=== PATIENT | female | born 1985 | race Caucasian/White ===

== ENCOUNTER 2016-06-15 20:51 | Emergency (ER) | payer MEDICAID, OTHER ==
[~2016-06-15] VITALS: Ht 167.6 cm; Wt 71.6 kg
[~2016-06-15 20:51] MED LIST: BUPR100T4 PO
[2016-06-15 21:21] VITALS: BP 114/83; PULSE 86; RESP 16; TEMP 99.3; O2SAT 97
[2016-06-15 22:43] VITALS: BP 117/61; PULSE 73; RESP 18; TEMP 99.3; O2SAT 100
[2016-06-15] MEDS ORDERED: ONDANSETRON HCL 4 MG/2 ML VIAL IV PUSH ONE (22:45)
[2016-06-15] MEDS ORDERED: SODIUM CHLOR 0.9% 1000 ML INJ 1,000 ML IV ONE ×2 (22:45)
--- NOTE | 2016-06-15 22:48 | PD ---
HPI Chief Complaint: GI Complaint Time Seen by Provider: 22:36 Travel History International Travel<30 days: No Contact w/Intl Traveler<30days: No Traveled to known affect area: No History of Present Illness HPI This 31-year-old female is complaining of vomiting. She says she's had persistent vomiting last 12 hours. She has some upper abdominal discomfort. He had sporadic vomiting at times. She had endoscopy with Dr. Slade in September. 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 She says she has not used drugs for the past year PFSH Past Medical History ADD: Yes ADHD: Yes Anxiety: Yes Cardiovascular Problems: Yes (ENDOCARDITIS) Cerebrovascular Accident: Yes Diminished Hearing: No Musculoskeletal: Yes (CHRONIC BACK PAIN) Neurologic: Yes (BRAIN ANEURYSM, MENINGITIS) Immunizations Current: Yes ?: Not LMP: 1 yr ago : 0 Para: 0 Miscarriage: 0 : 0 Past Surgical History Appendectomy: Yes Other Surgery: Yes (BREAST AUGMENTATION ) Social History Alcohol Use: No Tobacco Use: No Substance Use: No (adderall, oxycodone previous use, quit 07/2015) Allergies-Medications (Allergen,Severity, Reaction): Coded Allergies: Etomidate (Verified Allergy, Severe, SEISURE RASH, 06/15/16) Rocephin (Verified Allergy, Intermediate, Hives, 06/15/16) Reported Meds & Prescriptions Reported Meds & Active Scripts Active Zofran Odt (Ondansetron Odt) 4 Mg Tab 4 Mg SL Q6HR PRN Reported Bupropion HCl 100 Mg Tab 100 Mg PO BID Review of Systems General / Constitutional: No: Fever, Chills Eyes: No: Diploplia HENT: No: Headaches Cardiovascular: No: Chest Pain or Discomfort, Palpitations Respiratory: No: Cough, Shortness of Breath Gastrointestinal: Positive: Nausea, Vomiting, No: Diarrhea, Hematochezia Genitourinary: No: Urgency, Frequency Musculoskeletal: No: Myalgias, Arthralgias Skin: No Rash Endocrine: No: Heat Intolerance, Cold Intolerance Hematologic/Lymphatic: No: Easy Bruising Physical Exam Narrative GENERAL: Well-developed female SKIN: Focused skin assessment warm/dry. HEAD: Atraumatic. Normocephalic. EYES: Pupils equal and round. No scleral icterus. No injection or drainage. ENT: No nasal bleeding or discharge. Mucous membranes pink and moist. NECK: Trachea midline. No JVD. CARDIOVASCULAR: Regular rate and rhythm. No murmur appreciated. RESPIRATORY: No accessory muscle use. Clear to auscultation. Breath sounds equal bilaterally. GASTROINTESTINAL: Abdomen soft, non-tender, nondistended. Hepatic and splenic margins not palpable. MUSCULOSKELETAL: No obvious deformities. No clubbing. No cyanosis. No edema. NEUROLOGICAL: Awake and alert. No obvious cranial nerve deficits. Right-sided weakness, mild dysphagia PSYCHIATRIC: Appropriate mood and affect; insight and judgment normal. Data Data Last Documented VS Vital Signs Date Time Temp Pulse Resp B/P Pulse Ox O2 Delivery O2 Flow Rate FiO2 06/15/16 22:45 18 06/15/16 22:43 99.3 73 117/61 100 Orders Complete Blood Count With Diff (06/15/16 22:43) Comprehensive Metabolic Panel (06/15/16 22:43) Lipase (06/15/16 22:43) Sodium Chlor 0.9% 1000 Ml Inj (Ns 1000 M (06/15/16 22:45) Sodium Chlor 0.9% 1000 Ml Inj (Ns 1000 M (06/15/16 22:45) Ondansetron Inj (Zofran Inj) (06/15/16 22:45) Urinalysis - C+S If Indicated (06/15/16 23:34) Labs Laboratory Tests Test 06/15/16 23:20 White Blood Count 11.4 TH/MM3 Red Blood Count 4.96 MIL/MM3 Hemoglobin 14.7 GM/DL Hematocrit 44.1 % Mean Corpuscular Volume 88.9 FL Mean Corpuscular Hemoglobin 29.7 PG Mean Corpuscular Hemoglobin 33.4 % Concent Red Cell Distribution Width 12.4 % Platelet Count 284 TH/MM3 Mean Platelet Volume 9.4 FL Neutrophils (%) (Auto) 64.2 % Lymphocytes (%) (Auto) 25.5 % Monocytes (%) (Auto) 8.1 % Eosinophils (%) (Auto) 0.1 % Basophils (%) (Auto) 2.1 % Neutrophils # (Auto) 7.4 TH/MM3 Lymphocytes # (Auto) 2.9 TH/MM3 Monocytes # (Auto) 0.9 TH/MM3 Eosinophils # (Auto) 0.0 TH/MM3 Basophils # (Auto) 0.2 TH/MM3 CBC Comment DIFF FINAL Differential Comment Urine Color PEDRO PABLO Urine Turbidity CLEAR Urine pH 6.0 Urine Specific Dat[place] 1.031 Urine Protein 30 mg/dL Urine Glucose (UA) NEG mg/dL Urine Ketones 80 OR GREATER mg/dL Urine Occult Blood NEG Urine Nitrite NEG Urine Bilirubin NEG Urine Leukocyte Esterase NEG Urine RBC 0-3 /hpf Urine WBC 3-5 /hpf Urine Squamous Epithelial 6-8 /hpf Cells Urine Bacteria OCC /hpf Microscopic Urinalysis Comment CULT NOT INDICATED Sodium Level 143 MEQ/L Potassium Level 3.6 MEQ/L Chloride Level 103 MEQ/L Carbon Dioxide Level 28.5 MEQ/L Anion Gap 12 MEQ/L Blood Urea Nitrogen 18 MG/DL Creatinine 1.00 MG/DL Estimat Glomerular Filtration 65 ML/MIN Rate Random Glucose 97 MG/DL Calcium Level 9.6 MG/DL Total Bilirubin 0.5 MG/DL Aspartate Amino Transf 13 U/L (AST/SGOT) Alanine Aminotransferase 22 U/L (ALT/SGPT) Alkaline Phosphatase 59 U/L Total Protein 8.3 GM/DL Albumin 4.4 GM/DL Lipase 130 U/L [facility] Medical Decision Making Medical Screen Exam Complete: Yes Emergency Medical Condition: Yes Medical Record Reviewed: Yes Differential Diagnosis Differential includes acute gastritis, gastroenteritis, dehydration Narrative Course White count is 11,000. Urine does show large amount of ketones consistent with dehydration. She has vomited even after Zofran and will be given Reglan and PROTONIX. Diagnosis Primary Impression: Acute gastritis Qualified Code: K29.00 - Acute gastritis without hemorrhage, unspecified gastritis type Scripts Ondansetron Odt (Zofran Odt)4 Mg Tab4 Mg SL Q6HR PRN (Nausea/Vomiting) #10 TAB Ref 0 Prov:Fabiano Rodriguez MD 06/15/16 Fabiano Rodriguez MD Jun 15, 2016 22:48
[2016-06-15 23:43] LABS: BLOOD, URINE NEG (NEG); GLUCOSE,URINE NEG (NEG); NITRITE,URINE NEG (NEG)
[2016-06-15 23:44] LABS: AUTOMATED NEUTROPHIL # 7.4 TH/MM3 (1.8-7.7); BASOPHIL # 0.2 TH/MM3 (0-0.2); BASOPHIL % 2.1 % (0.0-2.0); EOSINOPHIL % 0.1 % (0.0-4.0); HEMATOCRIT 44.1 % (35.0-46.0); LYMPH % 25.5 % (9.0-44.0); LYMPHOCYTE # 2.9 TH/MM3 (1.0-4.8); MEAN CELL VOLUME 88.9 FL (80.0-100.0); MEAN CORPUSCULAR HEMOGLOBIN 29.7 PG (27.0-34.0); MEAN CORPUSCULAR HGB CONC 33.4 % (32.0-36.0); MONO % 8.1 % (0.0-8.0); NEUT % 64.2 % (16.0-70.0); PLATELET COUNT 284 TH/MM3 (150-450); RED BLOOD COUNT 4.96 MIL/MM3 (4.00-5.30); RED CELL DISTRIBUTION WIDTH 12.4 % (11.6-17.2); WHITE BLOOD COUNT 11.4 TH/MM3 (4.0-11.0)
[2016-06-15 23:48] LABS: HEMO FLAGS DIFF FINAL
[2016-06-15 23:49] LABS: KETONE, URINE 80 OR GREATER mg/dL (NEG); URINE COLOR AMBER (YELLW/STRAW)
[2016-06-15 23:50] LABS: BACTERIA, URINE OCC /hpf; CHLORIDE 103 MEQ/L (98-107); COMMENT (UR) CULT NOT INDICATED; CULTURE IF INDICATED CULT NOT INDICATED; POTASSIUM 3.6 MEQ/L (3.5-5.1); RBC, URINE 0-3 /hpf (0-3); SODIUM (NA) 143 MEQ/L (136-145)
[2016-06-15] MEDS ORDERED: ZOFR4TAB3 SL (23:50)
[2016-06-15 23:54] LABS: ANION GAP 12 MEQ/L (5-15); BICARBONATE 28.5 MEQ/L (21.0-32.0); BLOOD UREA NITROGEN 18 MG/DL (7-18)
[2016-06-15 23:56] LABS: ALT (GPT) 22 U/L (10-53)
[2016-06-15 23:57] LABS: AST (GOT) 13 U/L (15-37); GLOMERULAR FILTRATION RATE 65 ML/MIN (>89)
[2016-06-15 23:58] LABS: TOTAL BILIRUBIN ADULT 0.5 MG/DL (0.2-1.0)
[2016-06-15 23:59] LABS: ALKALINE PHOSPHATASE 59 U/L (45-117)
[2016-06-16] MEDS ORDERED: METOCLOPRAMIDE HCL 10 MG/2 ML VIAL IV PUSH ONE (00:15)
[2016-06-16] MEDS ORDERED: PANTOPRAZOLE SODIUM 40 MG VIAL IV PUSH ONE (00:15)
[2016-06-16 00:24] VITALS: BP 116/78; PULSE 78; RESP 18; O2SAT 97
[2016-06-16 01:38] VITALS: BP 112/78; PULSE 78; RESP 18; O2SAT 97
== END 2016-06-16 01:43 | disposition home or self-care (01) ==
LOC: PHED 20:51
DX: K29.00 Acute gastritis without bleeding (principal); Z86.79 Personal history of other diseases of the circulatory system; Z87.39 Personal history of other diseases of the musculoskeletal system and connective tissue; Z86.69 Personal history of other diseases of the nervous system and sense organs; Z86.59 Personal history of other mental and behavioral disorders
CPT/HCPCS: 80053; 81001; 83690; 85025; 96361; 96374; 96375; 99284; C9113; J2405; J2765; J7030

== ENCOUNTER 2017-03-27 15:32 | Emergency (ER) | payer MEDICAID ==
[~2017-03-27] VITALS: Ht 167.6 cm; Wt 56.9 kg
[~2017-03-27 15:32] MED LIST changes: +OMEP20TA93 PO; +PROM25TA10 PO
[2017-03-27 15:38] VITALS: BP 135/66; PULSE 108; RESP 16; TEMP 97.7; O2SAT 96
[2017-03-27] MEDS ORDERED: QUET1TAB7 PO (16:09)
[2017-03-27] MEDS ORDERED: WELLTAB39 PO (16:09)
[2017-03-27] MEDS ORDERED: ONDANSETRON ODT 4 MG TAB PO ONE (16:30)
--- NOTE | 2017-03-27 16:45 | PD ---
HPI Chief Complaint: GI Complaint Time Seen by Provider: 16:12 Travel History International Travel<30 days: No Contact w/Intl Traveler<30days: No Traveled to known affect area: No History of Present Illness HPI 31-year-old female presents with nonbloody emesis and cough with congestion over the past 6 days. She states her son tested flu positive. She states that she has not used IV drugs since last year when she had an abscess. She states she stayed in the hospital when she had an abscess in her neck back in June of last year. Duration 6 days. She denies any other concurrent complaints. She denies specific modifying factors. Qualities nonbloody. Severity is multiple episodes per patient. PFSH Past Medical History Hx Anticoagulant Therapy: No ADD: Yes ADHD: Yes Anxiety: Yes Cardiovascular Problems: Yes (ENDOCARDITIS) Cerebrovascular Accident: Yes (RIGHT SIDE PARALYSIS) Diabetes: No Diminished Hearing: No Musculoskeletal: Yes (CHRONIC BACK PAIN) Neurologic: Yes (BRAIN ANEURYSM, MENINGITIS) Immunizations Current: Yes Tetanus Vaccination: < 5 Years Influenza Vaccination: No ?: Not LMP: IUD IN PLACE : 0 Para: 0 Miscarriage: 0 : 0 Past Surgical History Appendectomy: Yes Other Surgery: Yes (BREAST AUGMENTATION/neck surgery) Social History Alcohol Use: No Tobacco Use: No Substance Use: No (adderall, oxycodone previous use, quit 07/2015) Allergies-Medications (Allergen,Severity, Reaction): Coded Allergies: etomidate (Unverified Allergy, Severe, SEISURE RASH, 03/27/17) ceftriaxone (Unverified Allergy, Intermediate, Hives, 03/27/17) Reported Meds & Prescriptions Reported Meds & Active Scripts Active Phenergan (Promethazine HCl) 25 Mg Tablet 25 Mg PO Q6H PRN Reported Quetiapine (Quetiapine Fumarate) 25 Mg Tab Unknown Dose PO BID Wellbutrin Xl 24 HR (Bupropion HCl) 300 Mg Tab 300 Mg PO DAILY Review of Systems Except as stated in HPI: all other systems reviewed are Neg Physical Exam Narrative GENERAL: 31-year-old female who is well-appearing SKIN: Focused skin assessment warm/dry. HEAD: Atraumatic. Normocephalic. EYES: Pupils equal and round. No scleral icterus. No injection or drainage. ENT: No nasal bleeding or discharge. Mucous membranes pink and moist. NECK: Trachea midline. No JVD. No meningeal signs CARDIOVASCULAR: Regular rate and rhythm. No murmur appreciated. RESPIRATORY: No accessory muscle use. Clear to auscultation. Breath sounds equal bilaterally. GASTROINTESTINAL: Abdomen soft, non-tender, nondistended. MUSCULOSKELETAL: No obvious deformities. No clubbing. No cyanosis. No edema. NEUROLOGICAL: Awake and alert. No obvious cranial nerve deficits. Motor grossly within normal limits. Normal speech. PSYCHIATRIC: Appropriate mood and affect; insight and judgment normal. Data Data Last Documented VS Vital Signs Date Time Temp Pulse Resp B/P (MAP) Pulse Ox O2 Delivery O2 Flow Rate FiO2 03/27/17 15:38 97.7 108 16 135/66 (89) 96 Orders Orders Ed Urine Pregnancytest Poc (03/27/17 15:50) Chest, Pa & Lat (03/27/17 ) Influenzae A/B Antigen (03/27/17 16:22) Ondansetron Odt (Zofran Odt) (03/27/17 16:30) Oral Rehydration (03/27/17 16:24) Drug Screen, Random Urine (03/27/17 16:48) Ed Discharge Order (03/27/17 17:25) Labs Laboratory Tests Test 03/27/17 16:55 Urine Opiates Screen POS Urine Barbiturates Screen NEG Urine Amphetamines Screen NEG Urine Benzodiazepines Screen NEG Urine Cocaine Screen NEG Urine Cannabinoids Screen NEG MDM Medical Decision Making Medical Screen Exam Complete: Yes Emergency Medical Condition: Yes Medical Record Reviewed: Yes (past history confirm, history of septic emboli and spinal abscess) Interpretation(s) Last 24 hours Impressions Chest X-Ray 03/27/17 0000 Signed Impressions: Service Date/Time: Monday, March 27, 2017 16:57 - CONCLUSION: No acute disease. Fran Cervantes MD beta is negative Differential Diagnosis Influenza, pneumonia, URI, gastroenteritis Narrative Course Will check influenza, beta, chest x-ray and dose with Zofran and reevaluate. Patient is in agreement to plan Influenza is negative, chest x-ray no acute, urine drug screen shows opiates. Patient states she may have taken a pill but adamantly denies IV drug abuse. Patient understands the risk if she does use IV drugs. Currently with symptoms of vomiting cough without signs of pneumonia on x-ray and vitals are stable. Tolerating oral hydration. We'll provide with Phenergan. Patient denies any new complaints and states that they are feeling better. Patient happy with care , all questions answered. Patient knows that follow up is incumbent on them and to return to the emergency room immediately if new or worsening symptoms develop. Patient given strict return precautions, vitals reviewed and are normal , agrees to further workup as an outpatient. Diagnosis Primary Impression: Vomiting Qualified Codes: R11.2 - Nausea with vomiting, unspecified Additional Impression: Cough Patient Instructions: General Instructions Additional Instructions: return as needed, follow with primary tommorrow, phenergan as needed Med/Other Pt SpecificInfo: Prescription(s) given Scripts Promethazine (Phenergan) 25 Mg Tablet 25 MG PO Q6H Y for NAUSEA OR VOMITING, #15 TAB 0 Refills Prov: Lory Faustin MD 03/27/17 Disposition: 01 DISCHARGE HOME Condition: Stable Lory Faustin MD Mar 27, 2017 16:45
--- NOTE | 2017-03-27 17:11 | RADRPT ---
EXAM DATE/TIME: 03/27/2017 16:57 [facility] COMPARISON: CHEST SINGLE AP, August 11, 2015, 12:55. INDICATIONS : Cough and congestion for 8 days. MEDICAL HISTORY : Aneurysm, intracranial. Cardiovascular disease. CVA SURGICAL HISTORY : Appendectomy. ENCOUNTER: Initial ACUITY: 1 week PAIN SCORE: 0/10 LOCATION: Bilateral chest FINDINGS: PA and lateral views of the chest demonstrate the lungs to be symmetrically aerated without evidence of mass, infiltrate or effusion. The cardiomediastinal contours are unremarkable. Osseous structure s are intact. CONCLUSION: No acute disease. Fran Cervantes MD on March 27, 2017 at 17:07 Board Certified Radiologist. This report was verified electronically.
[2017-03-27] MEDS ORDERED: PROM25TA10 PO (17:28)
== END 2017-03-27 17:45 | disposition home or self-care (01) ==
LOC: PHED 15:32
DX: R11.2 Nausea with vomiting, unspecified (principal); R05 Cough; F90.9 Attention-deficit hyperactivity disorder, unspecified type
CPT/HCPCS: 71046; 80307; 84703; 87804; 99284